=== PATIENT | female | born 1965 | race Caucasian/White ===

== ENCOUNTER 2016-03-03 09:14 | Day surgery (SDC) | payer OTHER ==
[~2016-03-03 09:14] MED LIST: LACTATED RINGERS 1,000 ML IV.SOLN IV ONE; Lidocaine 1% 20ml (SOUTH OMNI) ONE; PROPOFOL 200 MG/20 ML VIAL IV ONE
[2016-03-03 12:29] VITALS: BP 119/75
--- NOTE | 2016-03-03 14:46 | GI Report ---
REFERRING PHYSICIAN: Dr. Salma Brooks REMOTE BROADCAST TECHNICIAN: Kevin Mcmahan MD PROCEDURE MEDICATION: Propofol as per anesthesia. INDICATIONS: A 50-year-old woman is referred. Her father had colon cancer at 60. She is a high-risk screening. This is her first colonoscopy. She denies any blood with her stools. She has had abdominal and back surgery and a . FINDINGS: A slightly atonic redundant colon but no obvious intraluminal lesions were noted. PROCEDURE PERFORMED: Colonoscopy. PROCEDURE: An Olympus video colonoscope was advanced to the rectum. There is a slightly atonic redundant colon. It took some maneuvering but finally reached the cecum. The appendiceal orifice and terminal ileum were normal. On slow withdrawal, the cecum, ascending colon, and transverse colon had redundancy but no obvious intraluminal lesions noted. Likewise, the descending colon and sigmoid with some redundancy but no obvious intraluminal lesions noted. The rectum was normal. Patient tolerated the procedure well. RECOMMENDATIONS: 1. A high-fiber diet. 2. Since she is a high risk as her father had colon cancer at 60, consider re -looking at her colon in 5 years. 3. Follow up with Dr. Brooks cc: Dr. Salma JACKSON
== END 2016-03-03 12:48 | disposition home or self-care (01) ==
LOC: OPSURG 09:14
PROVIDERS: ATTEND Internal Medicine Gastroenterology
DX: Z12.11 Encounter for screening for malignant neoplasm of colon (principal); Z80.0 Family history of malignant neoplasm of digestive organs; K59.8 Other specified functional intestinal disorders
CPT/HCPCS: 45378; G0105; J2704; J7120; S1016

== ENCOUNTER 2016-04-27 08:30 | Outpatient (CLI) | payer OTHER ==
--- NOTE | 2016-04-27 13:37 | Diagnostic Imaging Report ---
BANDAR SHERMAN~ [facility] [address] [facility] [place], [place]. [address] ~ ~ ~ ~ Report Submission Date: Apr 27, 2016 9:34:45 AM CDT Patient ~ Study Name: ELSIE CH ~ Date: Apr 27, 2016 8:36:03 AM CDT ~ Modality Type: MR Gender: F ~ Description: E+1 MRI C-SPINE W/O CONTRAST : 67 ~ Institution: [facility] Physician: BANDAR SHERMAN ~ ~ ~ ~ MRI of the cervical spine Clinical history: Left neck pain, left upper extremity radiculopathy for 6 months . MRI of the cervical spine is performed routinely, study demonstrate the following : C2/C3 disc level: Normal. C3/C4 disc level: Normal. C4/C5 disc level: 2 mm generalized bulging disc without spinal stenosis . C5/C6 disc level: 1 mm generalized bulging disc . C6/C7 disc level: Normal . C7/T1 disc level: Normal . Normal spinal cord. Normal bone marrow signal . Impression: Very minimal disc disease process, mostly seen at C4/C5 and C5/C6 ~ Electronically signed on Apr 27, 2016 9:34:45 AM CDT by: Kirk JACKSON
== END 2016-04-27 08:32 ==
LOC: RAD 08:30
PROVIDERS: ATTEND Family Medicine
DX: M54.2 Cervicalgia (principal)
CPT/HCPCS: 72141

== ENCOUNTER 2017-02-25 03:30 | Emergency (ER) | payer OTHER ==
[2017-02-25] MEDS ORDERED: 0.9 % SODIUM CHLORIDE 1,000 ML IV ONE (04:35)
[2017-02-25] MEDS ORDERED: 0.9 % SODIUM CHLORIDE 500 ML IV ONE (04:36)
[2017-02-25] MEDS ORDERED: LORazepam 2 MG/ML VIAL IVP ONE ×3 (04:37→06:35)
[2017-02-25 04:48] LABS: BASOPHILS % 0.5 (0.0-1.5); EOSINOPHILS % 4.1 % (0.0-6.8); MEAN CORPUSCULAR HEMOGLOBIN 31.3 pg (28.0-34.0); MEAN CORPUSCULAR VOLUME 92.8 fl (80.0-100.0); MONOCYTES % 3.9 % (0.0-11.0); NEUTROPHILS # 5.1 # k/uL (1.4-7.7)
--- NOTE | 2017-02-25 04:51 | ED Physician Documentation ---
General Adult - HISTORIAN Historian: patient - HPI Stated Complaint: Nausea, dizziness Chief Complaint: Dizziness Additional Information: pt c/o nausea dizziness anxiety sleep disorder works nights 9pm to 7am-sleeps poorly when gets nocts off then baby sits w g[facility] early am-thinks sleeps 4- 5 hrs restless. she thinks the nausea emesis dtd magnesium which doctor just std -400mg bid. nausea few hrs after taking first dose. had zofran which relieved. pt also concerned re intermittent palpations. sleep is very restless and sleeps poorly during day when does have day off-works as [employer]. Onset: other (intermittent for several months) Timing: persistent since Severity: moderate Further Comments: yes (also suspects has STEPHANIE-sched for sleep study near future) - ROS CONST: other (condition as above) EYES/ENT: denies: problems with vision CVS/RESP: none. denies: chest pain, shortness of breath GI/: vomiting, nausea. denies: abdominal pain, problems urinating MS/SKIN/LYMPH: none NEURO/PSYCH: headache (migraine on occasion), anxiety. 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 LT SHOULDER JULY 2016) Allergies/Adverse Reactions: Allergies Allergy/AdvReac Type Severity Reaction Status Date / Time No Known Allergies Allergy Verified 02/25/17 04:00 Home Medications: Ambulatory Orders Medication Instructions Recorded Topiramate [Topamax] 100 mg PO BID 06/25/15 Ibuprofen [Advil] 800 mg PO TID PRN 02/25/17 Magnesium Oxide [Magnesium] 400 mg PO BID 02/25/17 Ondansetron HCl Rapdis [Zofran Odt] 4 mg PO Q8 PRN 02/25/17 - SOCIAL HX Smoking History: non-smoker Alcohol Use: none Drug Use: none - FAMILY HX Family History: No (MOM THINKS I WORRY TOO MUCH AND HAVING ANXIETY) - VITAL SIGNS Vital Signs: Vital Signs Temp Pulse Resp BP Pulse Ox 98.0 F 88 20 128/69 98 02/25/17 03:30 02/25/17 03:30 02/25/17 03:30 02/25/17 03:30 02/25/17 03:30 - REVIEWED ASSESSMENTS Nursing Assessment Reviewed: Yes Vitals Reviewed: Yes ED Results Lab/Radiology - Orders Orders: ED Orders Category Date Time Status Place IV Lock 1T Care 02/25/17 04:35 Active CBC/PLATELET/DIFF Routine Lab 02/25/17 Ordered CMP Routine Lab 02/25/17 Ordered URINALYSIS Routine Lab 02/25/17 Ordered 0.9 % Sodium Chloride [Normal Saline] 1,000 ml Med 02/25/17 04:35 Discontinued IV .STK-MED 0.9 % Sodium Chloride [Normal Saline] 500 ml Med 02/25/17 04:36 Active IV NOW LORazepam [Ativan] Med 02/25/17 04:37 Discontinued 0.5 mg IVP NOW ONE EKG WITH COMPARISON Stat Ther 02/25/17 Ordered General Adult Physical Exam - PHYSICAL EXAM GENERAL APPEARANCE: mild distress EENT: eye inspection normal, ENT inspection normal, VANNA, no nystagmus, TM's nml NECK: normal inspection, thyroid normal. No: lymphadenopathy, carotid bruit RESPIRATORY: no resp distress, chest non-tender, breath sounds normal CVS: reg rate & rhythm, heart sounds normal ABDOMEN: soft, non-tender. No: abnormal bowel sounds SKIN: warm/dry, normal color. No: cyanosis, diaphoresis, jaundice, mottled EXTREMITIES: non-tender, normal range of motion, no edema NEURO: oriented X3, motor nml, sensation nml, mood/affect nml Discharge Clincal Impression: anxiety and insomnia Referrals: Salma Brooks MD [Primary Care Provider] - 2 Days Comments: home cont ativan until can see pcp-get on medical regimen--pt may need to reduce night time work get on regular sleep cycle reduce work load. Condition: Good Disposition: 01 HOME, SELF-CARE Decision to Admit: NO Decision Time: 07:23
[2017-02-25 04:56] LABS: eGFR (African) > 60; eGFR (Non-African) > 60
[2017-02-25 07:43] VITALS: BP 114/65
[2017-02-25 07:53] LABS: APPEARANCE,URINE CLEAR (CLEAR); COLOR,URINE YELLOW (YELLOW); OCCULT BLOOD,URINE NEGATIVE (NEGATIVE); PH URINE 8.5 (5.0 - 8.0)
== END 2017-02-25 07:41 | disposition home or self-care (01) ==
LOC: ED 03:30
DX: F41.9 Anxiety disorder, unspecified (principal); G47.00 Insomnia, unspecified; R11.0 Nausea; R42 Dizziness and giddiness
CPT/HCPCS: 80053; 81002; 85025; 87086; 93005; 96361; 96374; 96376; 99283; J2060; J7060; S1016

== ENCOUNTER 2017-03-11 10:36 | Outpatient (CLI) | payer OTHER ==
--- NOTE | 2017-03-11 11:51 | Diagnostic Imaging Report ---
BANDAR SHERMAN [facility] [address] Counts Include [address] Beds At [facility] [address] [address] Report Submission Date: Mar 11, 2017 11:06:10 AM OUTBOUND SALES ADVISOR Patient Study Name: ELSIE CH Date: Mar 11, 2017 10:46:40 AM OUTBOUND SALES ADVISOR Modality Type: CR Gender: F Description: UPPER EXTREMITY : 67 Institution: [facility] Physician: BANDAR SHERMAN Examination: Plain film extremity History: Thumb discomfort Comparison exams: None available Findings: 3 views the left 1st digit demonstrates mild articular degenerative changes. No fracture. No dislocation. No soft tissue abnormality. Impression: Mild articular degenerative disease. No acute appearing osseous abnormality. Electronically signed on Mar 11, 2017 11:06:10 AM OUTBOUND SALES ADVISOR by: Santana JACKSON
== END 2017-03-11 10:37 ==
LOC: RAD 10:36
PROVIDERS: ATTEND Family Medicine
DX: M79.645 Pain in left finger(s) (principal)
CPT/HCPCS: 36415; 73140; 84550

== ENCOUNTER 2018-04-21 09:06 | Outpatient (CLI) | payer OTHER ==
[2018-04-21 09:32] LABS: BASOPHILS % 0.9 (0.0-1.5); EOSINOPHILS % 5.1 % (0.0-6.8); MEAN CORPUSCULAR HEMOGLOBIN 30.1 pg (28.0-34.0); MONOCYTES % 8.8 % (0.0-11.0); NEUTROPHILS # 3.6 # k/uL (1.4-7.7)
[2018-04-21 09:48] LABS: eGFR (Non-African) > 60
--- NOTE | 2018-04-21 14:07 | Diagnostic Imaging Report ---
LESA BHATIA [facility] [address] [facility] [address] [address] Report Submission Date: Apr 21, 2018 10:13:40 AM SENIOR EDITOR Patient Study Name: ELSIE CH Date: Apr 21, 2018 9:37:34 AM SENIOR EDITOR Modality Type: DX Gender: F Description: CHEST 2VIEW : 67 Institution: [facility] Physician: LESA BHATIA Examination: PA and lateral chest. History: Evaluate lung cardona. SOA ON EXERTION X2 WEEKS Comparison exam: None provided. Findings: PA and lateral views of the chest demonstrates a normal cardiac and mediastinal silhouette. No focal infiltrate. No blunting of the costophrenic margins. Osseous structures are appropriate for age. Impression: No acute pulmonary process. Electronically signed on Apr 21, 2018 10:13:40 AM SENIOR EDITOR by: Santana Montgomery Suggestion for some very mild parenchymal haziness within the right lower lung - possibly summation artifact as it is not visualized on lateral view. Follow as clinically warranted. Addendum electronically signed by Santana Montgomrey on April 21, 2018 10:16:46 AM SENIOR EDITOR MTDD
--- NOTE | 2018-04-22 06:30 | Diagnostic Imaging Report ---
LESA BHATIA [facility] [address] [facility] [address] [place] [address]. [address] Report Submission Date: Apr 21, 2018 4:52:04 PM WALL CRANE OPERATOR Patient Study Name: ELSIE CH Date: Apr 21, 2018 4:08:48 PM WALL CRANE OPERATOR Modality Type: CT\SR Gender: F Description: CT ABD PELVIS W/ CON : 67 Institution: [facility] Physician: LESA BHATIA Examination: CT Abdomen/pelvis History: LT FLANK PAIN FOR 3 WEEKS WORSE PAIN IN THE LAST 3 DAYS Comparison exams: None available Technique: CT Abdomen/pelvis with IV protocol. Findings: Liver demonstrates diffuse low attenuation. Surgical clips gallbladder fossa. Spleen, adrenals, pancreas, kidneys and gallbladder are without gross irregularity. No suspicious renal calcifications. Ureters are nondilated in their course through the abdomen and pelvis. No central calcifications. Bladder margin within normal limits. Pelvic phleboliths. Abdominal aorta without aneurysm. Peripheral atherosclerotic disease. Cardiac silhouette is not enlarged. No pericardial effusion. Bowel unopacified limiting evaluation. No abnormal dilation. Stool within the large bowel limiting sensitivity. No mesenteric inflammatory changes or free fluid. Appendix is visualized and is without inflammatory changes. Osseous structures demonstrate degenerative changes and lower lumbar fixation. Right middle lobe infiltrate. No effusion. Impression: No acute upper abdominal organ inflammatory process. No abnormal bowel dilation or inflammation. No suspicious renal calcifications or abnormal ureteric dilation. Right middle lobe infiltrate. No effusion. Electronically signed on Apr 21, 2018 4:52:04 PM WALL CRANE OPERATOR by: Santana JACKSON
== END 2018-04-21 09:08 ==
LOC: LAB 09:06
PROVIDERS: ATTEND Nurse Practitioner Family
DX: R06.02 Shortness of breath (principal); R10.9 Unspecified abdominal pain; R07.9 Chest pain, unspecified; J06.9 Acute upper respiratory infection, unspecified
CPT/HCPCS: 36415; 71046; 74177; 80053; 82553; 84484; 85025; 85379; 93005; Q9967

== ENCOUNTER 2018-07-13 09:17 | Outpatient (CLI) | payer OTHER ==
[2018-08-24 12:02] LABS: eGFR (Non-African) > 60
== END 2018-07-13 09:19 ==
LOC: LAB 09:17
PROVIDERS: ATTEND Family Medicine
DX: M25.473 Effusion, unspecified ankle (principal)
CPT/HCPCS: 36415; 80048

== ENCOUNTER 2018-10-22 07:32 | Outpatient (CLI) | payer OTHER ==
[2018-10-22 08:34] LABS: eGFR (Non-African) > 60
[2018-10-22 08:35] LABS: HDL 34 mg/dL (>40)
[2018-10-25 08:03] LABS: A1C 6.5 % (<5.7)
== END 2018-10-22 08:00 ==
LOC: LAB 07:32
PROVIDERS: ATTEND Family Medicine
DX: E11.9 Type 2 diabetes mellitus without complications (principal)
CPT/HCPCS: 36415; 80053; 80061; 83036

== ENCOUNTER 2019-01-23 08:36 | Outpatient (CLI) | payer OTHER ==
--- NOTE | 2019-01-23 08:53 | Diagnostic Imaging Report ---
PATIENT MR#: [id number] PATIENT PATIENT NAME: ELSIE CH DATE OF : 1965 REFERRING PHYSICIAN: Cheyenne Dc EXAM DATE: 01/23/2019 ACCESSION NUMBER: [id number] EXAM DESCRIPTION: WRIST 3 VIEWS OR MORE HISTORY: 53-year-old female with right wrist pain for 1 month COMPARISON: None available TECHNIQUE: 3 views of the right wrist were performed. FINDINGS: No evidence of fracture, subluxation, or dislocation about the right wrist. There is mild osteoarthritis of the first CMC joint. IMPRESSION: 1. No fracture of the right wrist. 2. 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 Read by: Dr. Constantine Hamilton Transcribed by: Transcribed Date: Electronically signed by: Dr. Constantine Hamilton Date signed: 01/23/2019 8:52:51 AM
== END 2019-01-23 08:41 ==
LOC: RAD 08:36
PROVIDERS: ATTEND Nurse Practitioner Family
DX: M25.531 Pain in right wrist (principal)
CPT/HCPCS: 73110